=== PATIENT | male | born 1985 | race Two or more races ===

== ENCOUNTER 2024-10-16 08:15 | Emergency (ER) | payer MEDICAID, OTHER ==
[~2024-10-16] VITALS: Ht 175.3 cm; Wt 64.9 kg
[2024-10-16 08:23] VITALS: BP 118/83; TEMP 97.9; O2SAT 98
[2024-10-16] MEDS ORDERED: AMOX-430 PO (08:34)
[2024-10-16] MEDS ORDERED: IBUPROFEN 600 MG TABLET ONE (08:35)
[2024-10-16] MEDS ORDERED: TDAP [DIPH/PERTUSSIS/TET] 0.5 ML VIAL IM ONE (08:36)
[2024-10-16] MEDS: TDAP [DIPH/PERTUSSIS/TET] 0.5 ML VIAL IM ONE (08:41)
[2024-10-16] MEDS: IBUPROFEN 600 MG TABLET PO ONE (08:42)
== END 2024-10-16 08:44 | disposition home or self-care (01) ==
LOC: ER 08:26
DX: S81.831A Puncture wound without foreign body, right lower leg, initial encounter (principal); F17.200 Nicotine dependence, unspecified, uncomplicated; W54.0XXA Bitten by dog, initial encounter; Y93.89 Activity, other specified; Y92.89 Other specified places as the place of occurrence of the external cause; Y99.8 Other external cause status
CPT/HCPCS: 90715